=== PATIENT | male | born 1945 | race Caucasian/White ===

== ENCOUNTER 2018-08-24 08:00 | Day surgery (SDC) | payer MEDICARE ==
[2018-08-24] MEDS ORDERED: insulin 70/30 SQ (09:11)
[2018-08-24] MEDS ORDERED: xarelto PO (09:11)
[2018-08-24] MEDS ORDERED: losartan PO (09:11)
[2018-08-24] MEDS ORDERED: metformin PO (09:11)
[2018-08-24] MEDS ORDERED: short acting insulin SQ (09:11)
== END 2018-08-24 09:25 | disposition home or self-care (01) ==
LOC: OUT 08:00
PROVIDERS: ATTEND Internal Medicine Gastroenterology
DX: K86.89 Other specified diseases of pancreas (principal); Z53.8 Procedure and treatment not carried out for other reasons; I10 Essential (primary) hypertension; G89.29 Other chronic pain; E11.9 Type 2 diabetes mellitus without complications; E78.5 Hyperlipidemia, unspecified; J44.9 Chronic obstructive pulmonary disease, unspecified; Z79.899 Other long term (current) drug therapy; Z72.0 Tobacco use; Z79.84 Long term (current) use of oral hypoglycemic drugs
CPT/HCPCS: 93005